=== PATIENT | male | born 1985 | race Caucasian/White ===

== ENCOUNTER 2020-09-29 11:22 | Emergency (ER) | payer OTHER ==
[2020-09-29 11:42] VITALS: O2SAT 98
[2020-09-29 12:23] LABS: Absolute Neutrophil Ct (ANC) 2.81 (1.4-6.9); BASOPHIL % 0.4 % (0.0-0.4); Basophil (Absolute #) 0.02 (0-0.4); Eosinophil % 0.8 % (0.00-5.0); Eosinophil (Absolute #) 0.04 (0-0.5); Hematocrit 43.1 % (42-50); Hemoglobin 14.6 gm/dl (12.5-18.0); Lymphocyte (Absolute #) 1.75 (1.0-4.6); Lymphocytes % 34.6 % (24.0-44.0); Mean Cell Volume 85.7 fl (78-100); Mean Corpuscular Hgb Concent. 33.9 g/dl (32-36); Mean Platelet Volume 8.4 fl (7.5-11.0); Monocyte (Absolute #) 0.44 (0.0-1.3); Monocytes % 8.7 % (0.0-12.0); Neutrophil % 55.5 % (36.0-66.0); Platelet Count 255 K/mm3 (150-450); Red Blood Count 5.03 M/mm3 (4.1-5.6); Red Cell Distribution Width 13.2 % (11.5-14.0); White Blood Count 5.1 K/mm3 (4.0-10.5)
[2020-09-29 12:30] LABS: INR 1.09 (0.8-3.0); PROTIME 12.3 SECONDS (8.83-12.87)
[2020-09-29 12:34] LABS: ALBUMIN 4.7 g/dL (3.5-5.0); ALKALINE PHOSPHATASE 58 U/L (38-126); ANION GAP 12.3 MEQ/L (5-15); BLOOD UREA NITROGEN 17 mg/dL (9-20); CHLORIDE 106 mmol/L (98-107); Calcium 9.8 mg/dL (8.4-10.2); Carbon Dioxide 26 mmol/L (22-30); Creatinine 1 0.85 mg/dL (0.66-1.25); EST GLOMERULAR FILTRATION RATE > 60.0 ML/MIN; Glucose 80 mg/dL (74-106); Potassium 3.7 mmol/L (3.5-5.1); SGOT/AST 33 U/L (17-59); SGPT/ALT 37 U/L (0-50); SODIUM 141 mmol/L (137-145); Total Protein 7.9 g/dL (6.3-8.2)
[2020-09-29 12:35] LABS: PTT 33.4 SECONDS (24.1-36.1)
--- NOTE | 2020-09-29 14:15 | ERPHSYRPT ---
- History of Present Illness Time Seen by Provider: 09/29/20 11:40 Source: patient Exam Limitations: no limitations Patient Subjective Stated Complaint: L eye pain Triage Nursing Assessment: pt to ED c/o L eye pain onset Wednesday evening. states hx migraines that usually originate in L eye, took sumatriptin and went to bed. woke with worsening pain. saw eye dr yesterday and was told nothing is wrong with the eye. pt reports swelling and unable to move top eyelid today. rates 3/10 pain at rest. but sharp pain with palpation and when trying to clsoe eye. denies trauma, debris, or exposure. Physician History: 35 years old male with history of migraine presented in the ER with chief complaint of inability to close left eye with left upper lid lag. Patient reports 5 days ago/last Wednesday started to have left-sided headache which was like a typical migraine starting in the left eye/temporal frontal area, took his Imitrex with some improvement in the pain but not completely gone. He woke up next morning with having difficulty closing his eye. No visual problem, and injection in the eye, difficulty movements of eyeball. He has dull aching mild pain in the upper lid upon palpation and closing. Denies any facial droop, numbness tingling weakness of face/extremities. No recent fever or chills reported. Patient was seen by ophthalmology yesterday with no acute finding in the eye itself. Timing/Duration: day(s) (5), sudden, worse Severity: moderate Character of Deficits: Left Facial Deficits: no difficulties Baseline/Normal Cognition: alert oriented x 3 Current Cognition: alert oriented x 3 Associated Symptoms: denies symptoms Allergies/Adverse Reactions: No Known Drug Allergies Allergy (Unverified 09/29/20 11:44) Home Medications: Sumatriptan Succinate [Imitrex] 50 mg PO DAILY PRN PRN 09/29/20 [History] Hx Tetanus, Diphtheria Vaccination/Date Given: Yes Hx Influenza Vaccination/Date Given: Yes Hx Pneumococcal Vaccination/Date Given: No Immunizations Up to Date: Yes Travel Risk - International Travel Have you traveled outside of the country in past 3 weeks: No - Coronavirus Screening Are you exhibiting any of the following symptoms?: No Close contact with a COVID-19 positive Pt in past 14-21 Days: No - Past Medical History Pertinent Past Medical History: Yes Neurological History: Migraines Cardiac History: No Pertinent History Respiratory History: No Pertinent History Endocrine Medical History: Diabetes Type II Musculoskeletal History: Degenerative Disk Disease Other Medical History: HX FX RIGHT FEMUR @ AGE 14 - HAD ALEKSANDR PLACED BUT WAS REMOVED. APPENDECTOMY 90s - Past Surgical History Past Surgical History: Yes Gastrointestinal: Appendectomy Musculoskeletal: Orthopedic Surgery Other Surgical History: R femur, back surgery - Social History Smoking Status: Never smoker Exposure to second hand smoke: No Drug Use: none Patient Lives Alone: No - Nursing Vital Signs Nursing Vital Signs: Initial Vital Signs Temperature 97.9 F 09/29/20 11:30 Pulse Rate 114 H 09/29/20 11:30 Respiratory Rate 18 09/29/20 11:30 Blood Pressure 130/85 09/29/20 11:30 O2 Sat by Pulse Oximetry 98 09/29/20 11:30 Pain Scale Pain Intensity 0 - [place] Coma Scale Best Eye Response ([place]): (4) open spontaneously Best Verbal Response ([place]): (5) oriented Best Motor Response ([place]): (6) obeys commands [place] Total: 15 - Physical Exam General Appearance: no apparent distress, alert Eye Exam: right eye: normal inspection, left eye: eyelid injury (Lid lag), bilateral eye: PERRL, EOMI Ears, Nose, Throat Exam: normal ENT inspection, TMs normal, pharynx normal Neck Exam: normal inspection, non-tender, supple, full range of motion Respiratory: normal breath sounds, lungs clear Cardiovascular: regular rate/rhythm, normal heart sounds Gastrointestinal: soft, normal bowel sounds, No tenderness Back Exam: normal inspection, normal range of motion Extremity Exam: normal inspection, normal range of motion, pelvis stable Mental Status: alert, oriented x 3, cooperative rail engineer Exam: normal hearing, normal speech, PERRL, No abnormal pupil position, No facial asymmetry, No facial droop, No facial paresthesias, No facial weakness Coordination/Gait: normal finger to nose, normal gait, normal cerebellar function, negative Romberg's sign Motor/Sensory: no motor deficit, no sensory deficit, no pronator drift, negative Babinski's sign DTR: bicep (R): 2+, bicep (L): 2+, knee (R): 2+, knee (L): 0 Skin Exam: normal color, warm SpO2 Interpretation: normal SpO2: 98 O2 Delivery: Room Air - Course Nursing assessment & vital signs reviewed: Yes EKG Interpreted by Me: RATE (101), Sinus Tach, NORMAL AXIS, NORMAL INTERVALS, NORMAL QRS Ordered Tests: Active Orders 24 hr Category Date Time Status EKG-ER Only STAT Care 09/29/20 11:44 Completed IV Insertion STAT Care 09/29/20 11:44 Completed NPO (ED) STAT Care 09/29/20 11:[address] ANGIOGRAPHY NECK [CT] Stat Exams 09/29/20 14:09 Taken CTA HEAD W AND/OR WO CONTRAST [CT] Stat Exams 09/29/20 13:42 Taken HEAD WITHOUT CONTRAST [CT] Stat Exams 09/29/20 12:04 Taken ORBITS WITHOUT CONTRAST [CT] Stat Exams 09/29/20 11:46 Taken CBC W DIFF Stat Lab 09/29/20 12:20 Completed CMP Stat Lab 09/29/20 12:20 Completed PROTIME WITH INR Stat Lab 09/29/20 12:20 Completed PTT Stat Lab 09/29/20 12:20 Completed SED RATE [Erythrocyte Sedimentation Rate] Stat Lab 09/29/20 13:02 Completed UA W/RFX UR CULTURE Stat Lab 09/29/20 14:38 Ordered Medication Summary Discontinued Medications Generic Name Dose Route Start Last Admin Trade Name Freq PRN Reason Stop Dose Admin Prednisone 60 mg 09/29/20 15:24 09/29/20 15:30 Deltasone 20 Mg PO 09/29/20 15:25 60 mg STAT ONE Administration Prednisone Confirm 09/29/20 15:28 Deltasone 20 Mg Administered 09/29/20 15:29 Dose 60 mg .ROUTE .STK-MED ONE Lab/Rad Data: Laboratory Result Diagrams 09/29/20 12:20 09/29/20 12:20 Laboratory Results 09/29/20 09/29/20 09/29/20 Range/Units 13:02 12:20 12:20 WBC (4.0-10.5) K/mm3 RBC (4.1-5.6) M/mm3 Hgb (12.5-18.0) gm/dl Hct (42-50) % MCV (78-100) fl MCH (26-32) pg MCHC (32-36) g/dl RDW (11.5-14.0) % Plt Count (150-450) K/mm3 MPV (7.5-11.0) fl Gran % (36.0-66.0) % Eos # (Auto) (0-0.5) Absolute Lymphs (auto) (1.0-4.6) Absolute Monos (auto) (0.0-1.3) Lymphocytes % (24.0-44.0) % Monocytes % (0.0-12.0) % Eosinophils % (0.00-5.0) % Basophils % (0.0-0.4) % Absolute Granulocytes (1.4-6.9) Basophils # (0-0.4) ESR 10 (0-15) mm/hr PT 12.3 (8.83-12.87) SECONDS INR 1.09 (0.8-3.0) APTT 33.4 (24.1-36.1) SECONDS Sodium 141 (137-145) mmol/L Potassium 3.7 (3.5-5.1) mmol/L Chloride 106 (98-107) mmol/L Carbon Dioxide 26 (22-30) mmol/L Anion Gap 12.3 (5-15) MEQ/L BUN 17 (9-20) mg/dL Creatinine 0.85 (0.66-1.25) mg/dL Estimated GFR > 60.0 ML/MIN Glucose 80 (74-106) mg/dL Calcium 9.8 (8.4-10.2) mg/dL Total Bilirubin 0.40 (0.2-1.3) mg/dL AST 33 (17-59) U/L ALT 37 (0-50) U/L Alkaline Phosphatase 58 (38-126) U/L Serum Total Protein 7.9 (6.3-8.2) g/dL Albumin 4.7 (3.5-5.0) g/dL 09/29/20 Range/Units 12:20 WBC 5.1 (4.0-10.5) K/mm3 RBC 5.03 (4.1-5.6) M/mm3 Hgb 14.6 (12.5-18.0) gm/dl Hct 43.1 (42-50) % MCV 85.7 (78-100) fl MCH 29.0 (26-32) pg MCHC 33.9 (32-36) g/dl RDW 13.2 (11.5-14.0) % Plt Count 255 (150-450) K/mm3 MPV 8.4 (7.5-11.0) fl Gran % 55.5 (36.0-66.0) % Eos # (Auto) 0.04 (0-0.5) Absolute Lymphs (auto) 1.75 (1.0-4.6) Absolute Monos (auto) 0.44 (0.0-1.3) Lymphocytes % 34.6 (24.0-44.0) % Monocytes % 8.7 (0.0-12.0) % Eosinophils % 0.8 (0.00-5.0) % Basophils % 0.4 (0.0-0.4) % Absolute Granulocytes 2.81 (1.4-6.9) Basophils # 0.02 (0-0.4) ESR (0-15) mm/hr PT (8.83-12.87) SECONDS INR (0.8-3.0) APTT (24.1-36.1) SECONDS Sodium (137-145) mmol/L Potassium (3.5-5.1) mmol/L Chloride (98-107) mmol/L Carbon Dioxide (22-30) mmol/L Anion Gap (5-15) MEQ/L BUN (9-20) mg/dL Creatinine (0.66-1.25) mg/dL Estimated GFR ML/MIN Glucose (74-106) mg/dL Calcium (8.4-10.2) mg/dL Total Bilirubin (0.2-1.3) mg/dL AST (17-59) U/L ALT (0-50) U/L Alkaline Phosphatase (38-126) U/L Serum Total Protein (6.3-8.2) g/dL Albumin (3.5-5.0) g/dL - Progress Progress: unchanged Progress Note: 09/29/20 15:25 35 years old is evaluated for left upper lid lag. Is made stroke activate. CT head is negative. [facility] neurology has evaluated patient, recommended CTA head neck, SOPHIE, sed rate, CRP. CTA head and neck are negative for dissection or any other acute findings. Sed rate/CRP/SOPHIE are not back yet. I have discussed with Dr. Grimm again who thinks patient has some kind of granulomatous/inflammatory process going on, recommended starting on prednisone and auto immune work-up including lumbar puncture if needed along with MRI. Neuro/ophthalmology follow- up for further evaluation. Neurology does not think patient needs any further work-up in the ER, can be discharged plan discussed with patient including signs symptoms of worsening needing return which he seems understanding. 09/29/20 15:[address] Other (Dr.Aron Mckeon [facility] [place] [facility]) Counseled pt/family regarding: lab results, diagnosis, need for follow-up, rad results - Departure Departure Disposition: Home Clinical Impression: Ptosis, left eyelid Condition: Stable Critical Care Time: Yes Critical Care Time(excluding separately billable procedures): Critical 30-74 mins Referrals: MARC ARCHER NP [Primary Care Provider] - Follow Up with PCP/3 days JORDAN BENNETT [NON-STAFF PHY W/O PRIVILEGES] - (Call tomorrow for appointment) NOAM CHEN [NON-STAFF PHY W/O PRIVILEGES] - (Call tomorrow for appointment) Additional Instructions: Take Tylenol as needed for pain. Use eye patch, artificial tears. Follow-up with ophthalmology and neurology for further evaluation and autoimmune work-up including lumbar puncture if needed. Return to ER for worsening lid lag or have any other focal numbness tingling or weakness. Prescriptions: Prednisone 20 mg [Deltasone 20 mg] 60 mg PO DAILY 5 Days #15 tablet
[2020-09-29 15:20] VITALS: BP 117/81; PULSE 84
[2020-09-29] MEDS ORDERED: DELTASONE 20 MG PO ONE (15:24)
[2020-09-29] MEDS ORDERED: DELTASONE 20 MG ONE (15:28)
[2020-09-29 16:20] LABS: Appearance CLEAR (CLEAR); Bilirubin NEGATIVE (NEGATIVE); Blood NEGATIVE Ery/ul (0-5); Glucose NEGATIVE (NEGATIVE); Ketones NEGATIVE (NEGATIVE); Leukocyte Esterase NEGATIVE (NEGATIVE); Nitrite NEGATIVE (NEGATIVE); Protein,Urine Dip NEGATIVE (Negative); Specific Gravity 1.006 (1.005-1.025); Urobilinogen NEGATIVE mg/dL (0-1)
--- NOTE | 2020-09-29 16:38 | XRAY ---
Indication: Left eyelid weakness 4 days. No known injury. Multiple contiguous axial images obtained through the head without contrast. Comparison: May 26, 2016. Normal appearing brain parenchyma, ventricles, and bony calvarium. Visualized paranasal sinuses and mastoid air cells are clear. Impression: Continued normal CT head without contrast exam. Comment: Preliminary interpretation was made by [facility]. No critical discrepancy.
--- NOTE | 2020-09-29 16:40 | XRAY ---
Indication: Left eyelid weakness 4 days. No known injury. Multiple contiguous axial images obtained through the orbits without contrast. Sagittal and coronal reformatted images obtained. Comparison: None. Orbits including extraocular muscles and optic nerves are bilaterally symmetric. No acute fracture, suspicious bony lesions, or radiopaque foreign body. Paranasal sinuses and nasal passages are clear. Minimal nasal septal deviation to the left. Remaining visualized noncontrast soft tissues are unremarkable. CT head reported separately. Impression: Normal CT orbits. Comment: Preliminary interpretation was made by [facility]. No critical discrepancy.
--- NOTE | 2020-09-29 16:45 | XRAY ---
Indication: Left eyelid weakness 4 days. No known injury. Conventional contrast enhanced CTA neck performed using 80 cc Isovue 370 contrast. Two-dimensional sagittal and coronal reformatted images obtained. Comparison: None. Visualized aortic arch is normal in course and caliber with normal and widely patent branching right brachiocephalic, left common carotid, and left subclavian arteries. Normal CTA appearance to the common carotid, carotid bulb, internal carotid, and external carotid arteries bilaterally. Vertebral arteries are bilaterally symmetric without critical stenosis/obstruction, or AV malformation. Visualized noncontrasted soft tissues are negative for pathologic cervical/supraclavicular lymphadenopathy. Thyroid gland enhances homogeneously. Supra and infraglottic airway widely patent. Cervical spine is normal. Impression: Normal CTA neck with contrast exam. Comment: Preliminary interpretation was made by [facility]. No critical discrepancy.
--- NOTE | 2020-09-29 16:47 | XRAY ---
Indication: Left eyelid weakness 4 days. No known injury. Conventional contrast enhanced CTA head performed using 80 cc Isovue 370 contrast. Two-dimensional sagittal and coronal reformatted images obtained. Comparison: None. CT head and CTA neck reported separately. Distal internal carotid arteries are normal in course and caliber with normal carotid terminus. Normal branching A1 and M1 segments bilaterally. More distal anterior cerebral, middle cerebral, and anterior communicating arteries are normal in CTA appearance. Basilar artery, basilar tip, posterior cerebral, and superior cerebellar arteries are normal in CTA appearance bilaterally. Remaining whole brain is negative for abnormal enhancing intra or extra-axial mass. Impression: Normal CTA head with contrast exam. Comment: Preliminary interpretation was made by [facility]. No critical discrepancy.
== END 2020-09-29 16:05 | disposition home or self-care (01) ==
LOC: ED 11:22
DX: H02.402 Unspecified ptosis of left eyelid (principal)
CPT/HCPCS: 36000; 36415; 70450; 70480; 70496; 70498; 80053; 81001; 85025; 85610; 85652; 85730; 86140; 86225; 86235; 93005; 99284; 99291; A9270-GY